=== PATIENT | female | born 1970 | race Caucasian/White ===

== ENCOUNTER → 2022-06-27 09:14 | Outpatient (CLI) | payer BC, SELFPAY ==
--- NOTE | 2022-06-27 | DI.US.S_ITS ---
ULTRASOUND OF LEFT BREAST: 06/27/2022 CLINICAL: Patient returns today to evaluate an asymmetry in the left breast. Comparison is made to exams dated: 06/27/2022 mammogram, 10/18/2015 mammogram, 11/17/2012 mammogram - [facility], and 12/12/2010 mammogram - [facility]. Color flow ultrasound of the left breast was performed. Srivastava scale images of the real-time examination were reviewed. There are two oval cysts with smooth internal lynn in the left breast superior lateral quadrant middle depth. One measures 1.2 cm and the other measures 0.8 cm. These oval cysts are anechoic. Color flow imaging demonstrates that there is no vascularity present. IMPRESSION: BENIGN There is no sonographic evidence of malignancy in the left upper outer quadrant. The two simple cysts in the left breast are benign. Return to left breast annual mammogram screening schedule is recommended. Findings and recommendations were conveyed to the patient at time of exam. This exam was interpreted at Station ID: [id number]. Electronically Signed By: Lisa helm/:06/27/2022 11:03:34 Entry: - 06/28/2022 12:13:54 Ultrasound BI-RADS: 2 Benign
--- NOTE | 2022-06-27 | DI.US.S_ITS ---
ULTRASOUND OF RIGHT BREAST: 06/27/2022 CLINICAL: Patient returns today to evaluate an asymmetry in the right breast. Comparison is made to exams dated: 06/27/2022 mammogram, 10/18/2015 ultrasound, 10/18/2015 mammogram, 11/28/2012, 11/17/2012 mammogram - [facility], and 12/12/2010 mammogram - [facility]. Color flow ultrasound of the right breast was performed. Srivastava scale images of the real-time examination were reviewed. There is a 0.7 cm x 0.6 cm x 0.5 cm oval cyst with a thickened posterior wall in the right breast at 10 o'clock middle depth 5 cm from the nipple. This oval cyst is anechoic. Color flow imaging demonstrates that there is no vascularity present. IMPRESSION: PROBABLY BENIGN The 0.7 cm x 0.6 cm x 0.5 cm oval cyst in the right breast is probably and involuting cyst and is probably benign. A follow-up right ultrasound in 6 months is recommended to demonstrate stability. Findings and recommendations were conveyed to the patient at time of exam. This exam was interpreted at Station ID: [id number]. Electronically Signed By: Lisa helm/:06/27/2022 11:09:52 letter sent: Followup Recommended Ultrasound BI-RADS: 3 Probably benign
--- NOTE | 2022-06-27 | DI.MG.S_ITS ---
BILATERAL DIGITAL DIAGNOSTIC MAMMOGRAM 3D/2D: 06/27/2022 CLINICAL: Abnormal results via thermography. Comparison is made to exams dated: 10/18/2015 mammogram and 11/17/2012 mammogram - [facility]. The tissue of both breasts is heterogeneously dense. This may lower the sensitivity of mammography. No significant masses, calcifications, or other findings are seen in either breast. Mammograms are stable. IMPRESSION: INCOMPLETE: NEEDS ADDITIONAL IMAGING EVALUATION There is no abnormality seen in either breast to correspond with the reported thermogram abnormalties. Ultrasound is recommended for full evaluation of these areas. This was performed immediately following this exam. Based on the Tyrer Cuzick model (a risk assessment model) the patient's lifetime risk is 12.6% and her 10 year risk is 3.3%. According to the ACR, ACS, and NCCN guidelines, an annual breast MRI exam along with mammogram is recommended if the patient's lifetime risk is 20% or greater. This exam was interpreted at Station ID: [id number]. NOTE: For mammograms, a report in lay terms will be sent to the patient. Approximately 15% of breast malignancies will not be visualized mammographically. In the management of a palpable breast mass, a negative mammogram must not discourage biopsy of a clinically suspicious lesion. Electronically Signed By: Lisa helm/:06/27/2022 10:18:15 ACR BI-RADS Category 0: Incomplete [id number]
== END ==
PROVIDERS: PCP Nurse Practitioner; Referring Provider Nurse Practitioner; Visit Provider Nurse Practitioner
DX: R92.8 Other abnormal and inconclusive findings on diagnostic imaging of breast (principal); N60.02 Solitary cyst of left breast; N60.01 Solitary cyst of right breast
CPT/HCPCS: 76642; 77066; G0279

== ENCOUNTER → 2024-07-16 11:55 | Outpatient (CLI) | payer BC, SELFPAY ==
--- NOTE | 2024-07-16 11:56 | DI.MG.S_ITS ---
BILATERAL DIGITAL DIAGNOSTIC MAMMOGRAM 3D/2D: 07/16/2024 CLINICAL: Abnormal findings from breast ultrasound. Comparison is made to exams dated: 06/27/2022 ultrasound, 06/27/2022 mammogram - [facility], and 03/31/2024 ultrasound. Both breasts are heterogeneously dense, which may obscure small masses (category c / 51-75% glandular tissue). No significant masses, calcifications, or other findings are seen in either breast. IMPRESSION: INCOMPLETE: NEEDS ADDITIONAL IMAGING EVALUATION There is no abnormality seen in the left breast to correspond with the outside ultrasound findings at 1 and 3 o'clock on the exam from 03/31/2024. There is no abnormality seen in the right breast to correspond with the probably benign prior ultrasound finding on the exam from 06/27/2022. Targeted ultrasound of both breasts is recommended for further evaluation and will be performed immediately following this exam. Based on the Tyrer Cuzick model (a risk assessment model) the patient's lifetime risk is 13.0% and her 10 year risk is 3.8%. According to the ACR, ACS, and NCCN guidelines, an annual breast MRI exam along with mammogram is recommended if the patient's lifetime risk is 20% or greater. This exam was interpreted at Station ID: [id number]. NOTE: For mammograms, a report in lay terms will be sent to the patient. Approximately 15% of breast malignancies will not be visualized mammographically. In the management of a palpable breast mass, a negative mammogram must not discourage biopsy of a clinically suspicious lesion. Electronically Signed By: Wale Lopez M.D. ar/:07/16/2024 16:34:41 ACR BI-RADS Category 0: Incomplete [id number]
--- NOTE | 2024-07-16 11:57 | DI.US.S_ITS ---
LIMITED ULTRASOUND OF RIGHT BREAST: 07/16/2024 CLINICAL: Late interval follow-up of right breast cyst. Comparison is made to exams dated: 07/16/2024 mammogram - [facility], 03/31/2024 ultrasound, 06/27/2022 ultrasound, 06/27/2022 mammogram, and 06/27/2022 ultrasound - [facility]. Color flow and real-time ultrasound of the right breast 10 o'clock region were performed. Srivastava scale images of the real-time examination were reviewed. There is a 0.5 cm x 0.5 cm x 0.3 cm oval cyst with a smooth internal wall in the right breast at 10 o'clock middle depth 7 cm from the nipple. This oval cyst is hypoechoic. This correlates as an incidental finding. Color flow imaging demonstrates that there is no vascularity present. There also is a stable benign 0.4 cm x 0.5 cm x 0.4 cm oval cyst with a thickened wall in the right breast at 10 o'clock posterior depth 5 cm from the nipple. This oval cyst is anechoic. Color flow imaging demonstrates that there is no vascularity present. This corresponds to the ultrasound finding from 06/27/2022. IMPRESSION: PROBABLY BENIGN The 0.5 cm x 0.5 cm x 0.3 cm oval cyst in the right breast at 10 o'clock middle depth most likely is a complicated cyst and is probably benign. A follow-up ultrasound in 6 months is recommended. The stable 0.4 cm x 0.5 cm x 0.4 cm oval cyst in the right breast at 10 o'clock posterior depth is benign. A follow-up ultrasound in 6 months is recommended to demonstrate stability. This exam was interpreted at Station ID: [id number]. Electronically Signed By: Wale Lopez M.D. ar/:07/16/2024 16:42:44 Ultrasound BI-RADS: 3 Probably benign
--- NOTE | 2024-07-16 11:57 | DI.US.S_ITS ---
LIMITED ULTRASOUND OF LEFT BREAST: 07/16/2024 CLINICAL: Follow up left breast from outside imaging. Comparison is made to exams dated: 07/16/2024 mammogram, 06/27/2022 ultrasound, 06/27/2022 mammogram - [facility], and 03/31/2024 ultrasound. Color flow and real-time ultrasound of the left breast 1 o'clock, and retroareolar regions were performed. Srivastava scale images of the real-time examination were reviewed. There is a 0.9 cm x 0.7 cm x 0.8 cm oval cyst with a smooth internal wall in the left breast central to the nipple posterior depth. This oval cyst is hypoechoic with posterior acoustic enhancement. This correlates with ultrasound findings. Color flow imaging demonstrates that there is no vascularity present. In the left breast at the 1 o'clock position 3 cm from the nipple, there is an area of shadowing tissue without a mass seen, most likely due to normal breast stroma. This correlates with the prior ultrasound findings from 03/31/2024. IMPRESSION: PROBABLY BENIGN The 0.9 cm x 0.7 cm x 0.8 cm oval cyst in the left breast is probably benign. The area of shadowing fibroglandular tissue in the left breast is probably benign. A follow-up ultrasound in 6 months is recommended to demonstrate stability. This exam was interpreted at Station ID: [id number]. Electronically Signed By: Wale Lopez M.D. ar/:07/16/2024 16:47:23 letter sent: Followup Recommended Ultrasound BI-RADS: 3 Probably benign
== END ==
LOC: MAMMO 11:55
PROVIDERS: PCP Nurse Practitioner; Referring Provider Nurse Practitioner; Visit Provider Nurse Practitioner
DX: R92.8 Other abnormal and inconclusive findings on diagnostic imaging of breast (principal); N60.02 Solitary cyst of left breast; N60.01 Solitary cyst of right breast; N63.25 Unspecified lump in the left breast, overlapping quadrants; R92.333 Mammographic heterogeneous density, bilateral breasts
CPT/HCPCS: 76642; 77066; G0279